=== PATIENT | female | born 1990 | race Caucasian/White ===

== ENCOUNTER 2018-03-14 09:58 | Emergency (ER) | payer MEDICAID, SELFPAY ==
[2018-03-14 10:04] VITALS: BP 130/66; PULSE 71; RESP 16; TEMP 36.4; O2SAT 99
--- NOTE | 2018-03-14 10:30 | W.ED.GENAD ---
Discharge Plan Disposition Patient Disposition: HOME Condition: Stable Discharge Details Chief Complaint: Cellulitis Clinical Impression: Pilonidal abscess Primary Care Provider: Jerel Harrison ED Provider: Luigi Patel Home Meds and New Rx's Prescriptions: New sulfamethoxazole-trimethoprim [Bactrim DS] 800-160 mg tablet 1 tab PO BID Qty: 10 RF: 0 Discharge Instructions Instructions: Pilonidal Cyst (GEN) Discharge Data Discharge Physician: Luigi Patel Medical Decision Making Pt comes in with a few days of pain in upper buttock crease. On exam has a pilonidal cyst with some evidence of infection. She gives verbal consent to have this drained and will start abx for her. No fevers or sever epain, no difficulty having bowel movements or adominal pain so doubt other anorectal abscess incised without complications, purulent material expressed and probed with delano to break up adhesions. Will d/c home and have her f/u with general surgery Differential Diagnosis cellulitis, pilonidal cyst HPI General Mode of arrival: ambulatory. Date/Time Provider Initiated Documentation: 03/14/18 10:21. Limitations to Documentation: no limitations. Information obtained by: patient. History of Present Illness 27 year old F presents to the emergency department with the chief complaint of rash, described as moderate, with intensity rated at 3. Quality is described as aching, and is localized to the back. Patient reports no radiation. Patient started experiencing this day(s) (3) No relieving factors improve symptom(s), No exacerbating factors reported . Patient did receive the following treatments prior to arrival, none Related Data Home Medications Medication Instructions Recorded Confirmed sulfamethoxazole-trimethoprim 1 tab PO BID #10 tab 03/14/18 [Bactrim DS] Previous Rx's Medication Instructions Recorded sulfamethoxazole-trimethoprim 1 tab PO BID #10 tab 03/14/18 [Bactrim DS] Allergies Allergy/AdvReac Type Severity Reaction Status Date / Time codeine Allergy Unknown Hives Unverified 06/05/15 11:33 General Stated Complaint: Cellulitis JE: 3 Review of Systems Review of Systems All systems reviewed & are unremarkable except as noted in HPI and below Constitutional Denies chills and Denies fever(s) ENT Denies change in voice Cardiovascular Denies chest pain and Denies dyspnea Respiratory Denies dyspnea Gastrointestinal Denies abdominal pain, Denies nausea and Denies vomiting Genitourinary Denies dysuria Musculoskeletal Denies joint swelling Psychiatric Denies depression Endocrine Denies cold intolerance and Denies heat intolerance PFSH Social History Smoking/Tobacco Use Status: Current every day Exam Const General: no acute distress Orientation: alert HENMT Head: normal to inspection Ears: external ears normal General nose exam: external nose normal Mouth: moist mucous membranes Eyes General: appearance normal, both eyes and all related structures Neck Neck: normal visual inspection Resp Effort & Inspection: normal respiratory effort and able to speak in complete sentences Cardio Rate: regular rate Back/Spine/Pelvis Back: other (3cm erythema with mid fluctuance at the superior midline of the buttock crease, no crepitus or drainage) Skin General skin exam: no rashes or lesions noted Neuro General: alert and oriented x3 Extrem General: normal to inspection Psych Mental Status: mental status grossly normal Course Vital Signs Temperature 36.4 C L 03/14/18 10:04 Pulse 71 03/14/18 10:04 Respiratory Rate 16 03/14/18 10:04 Blood Pressure 130/66 03/14/18 10:04 Pulse Oximetry 99 03/14/18 10:04 Temperature 36.4 C L 03/14/18 10:04 Temperature Source Temporal Artery Scan 03/14/18 10:04 Pulse 71 03/14/18 10:04 Respiratory Rate 16 03/14/18 10:04 Respiratory Effort 03/14/18 10:07 Blood Pressure 130/66 03/14/18 10:04 Pulse Oximetry 99 03/14/18 10:04 Oxygen Delivery Method Room Air 03/14/18 10:04 Oxygen Flow Rate 0 03/14/18 10:04 Pain Level 8 03/14/18 10:04 Procedures Abscess I/D Site: Other (pilonidal) Sedation/analgesia: None Local Anesthetic: Lidocaine 1% Amount of anesthesia used (mL): 4 Technique: Incised with #11 Blade Amount of fluid expressed (mL): 10 Irrigation: Yes Packing used?: None Complications: Other (none)
--- NOTE | 2018-03-14 10:33 | ED.GENADUL_ITS ---
Discharge Plan Disposition Patient Disposition: HOME Condition: Stable Discharge Details Chief Complaint: Cellulitis Clinical Impression: Pilonidal abscess Primary Care Provider: Jerel Harrison ED Provider: Luigi Patel Home Meds and New Rx's Prescriptions: New sulfamethoxazole-trimethoprim [Bactrim DS] 800-160 mg tablet 1 tab PO BID Qty: 10 RF: 0 Discharge Instructions Instructions: Pilonidal Cyst (GEN) Discharge Data Discharge Physician: Luigi Patel Medical Decision Making Pt comes in with a few days of pain in upper buttock crease. On exam has a pilonidal cyst with some evidence of infection. She gives verbal consent to have this drained and will start abx for her. No fevers or sever epain, no difficulty having bowel movements or adominal pain so doubt other anorectal abscess incised without complications, purulent material expressed and probed with delano to break up adhesions. Will d/c home and have her f/u with general surgery Differential Diagnosis cellulitis, pilonidal cyst HPI General Mode of arrival: ambulatory . Date/Time Provider Initiated Documentation: 03/14/18 10:21 . Limitations to Documentation: no limitations . Information obtained by: patient . History of Present Illness 27 year old F presents to the emergency department with the chief complaint of rash, described as moderate, with intensity rated at 3. Quality is described as aching, and is localized to the back. Patient reports no radiation. Patient started experiencing this day(s) (3) No relieving factors improve symptom(s), No exacerbating factors reported . Patient did receive the following treatments prior to arrival, none Related Data Home Medications Medication Instructions Recorded Confirmed sulfamethoxazole-trimethoprim 1 tab PO BID #10 tab 03/14/18 [Bactrim DS] Previous Rx's Medication Instructions Recorded sulfamethoxazole-trimethoprim 1 tab PO BID #10 tab 03/14/18 [Bactrim DS] Allergies Allergy/AdvReac Type Severity Reaction Status Date / Time codeine Allergy Unknown Hives Unverified 06/05/15 11:33 General Stated Complaint: Cellulitis JE: 3 Review of Systems Review of Systems All systems reviewed & are unremarkable except as noted in HPI and below Constitutional Denies chills and Denies fever(s) ENT Denies change in voice Cardiovascular Denies chest pain and Denies dyspnea Respiratory Denies dyspnea Gastrointestinal Denies abdominal pain, Denies nausea and Denies vomiting Genitourinary Denies dysuria Musculoskeletal Denies joint swelling Psychiatric Denies depression Endocrine Denies cold intolerance and Denies heat intolerance PFSH Social History Smoking/Tobacco Use Status: Current every day Exam Const General: no acute distress Orientation: alert HENMT Head: normal to inspection Ears: external ears normal General nose exam: external nose normal Mouth: moist mucous membranes Eyes General: appearance normal, both eyes and all related structures Neck Neck: normal visual inspection Resp Effort & Inspection: normal respiratory effort and able to speak in complete sentences Cardio Rate: regular rate Back/Spine/Pelvis Back: other (3cm erythema with mid fluctuance at the superior midline of the buttock crease, no crepitus or drainage) Skin General skin exam: no rashes or lesions noted Neuro General: alert and oriented x3 Extrem General: normal to inspection Psych Mental Status: mental status grossly normal Course Vital Signs Temperature 36.4 C L 03/14/18 10:04 Pulse 71 03/14/18 10:04 Respiratory Rate 16 03/14/18 10:04 Blood Pressure 130/66 03/14/18 10:04 Pulse Oximetry 99 03/14/18 10:04 Temperature 36.4 C L 03/14/18 10:04 Temperature Source Temporal Artery Scan 03/14/18 10:04 Pulse 71 03/14/18 10:04 Respiratory Rate 16 03/14/18 10:04 Respiratory Effort 03/14/18 10:07 Blood Pressure 130/66 03/14/18 10:04 Pulse Oximetry 99 03/14/18 10:04 Oxygen Delivery Method Room Air 03/14/18 10:04 Oxygen Flow Rate 0 03/14/18 10:04 Pain Level 8 03/14/18 10:04 Procedures Abscess I/D Site: Other (pilonidal) Sedation/analgesia: None Local Anesthetic: Lidocaine 1% Amount of anesthesia used (mL): 4 Technique: Incised with #11 Blade Amount of fluid expressed (mL): 10 Irrigation: Yes Packing used?: None Complications: Other (none)
--- NOTE | 2018-03-15 10:46 | PDOC.ERCMPRO ---
Care Management Progress Note 03/15-Dr. Patel requested assistance with a surgical f/u this week for pylonidal abscess. Referral faxed to [facility] this am.
--- NOTE | 2018-03-15 10:47 | CMPROGNOTE_ITS ---
Care Management Progress Note 03/15-Dr. Patel requested assistance with a surgical f/u this week for pylonidal abscess. Referral faxed to [facility] this am.
== END 2018-03-14 10:57 | disposition home or self-care (01) ==
LOC: ER 11:02
PROVIDERS: Emergency Provider Emergency Medicine; PCP Family Medicine
DX: L05.02 Pilonidal sinus with abscess (principal)
CPT/HCPCS: 10060

== ENCOUNTER 2018-10-03 14:14 | Emergency (ER) | payer MEDICAID, SELFPAY ==
--- NOTE | 2018-10-03 14:21 | NUR.NOTE ---
rolled her right ankle last night pr rotated ankle both medially and laterally
--- NOTE | 2018-10-03 14:22 | DI.RAD_ITS ---
SYMPTOM/DIAGNOSIS: ROLLED ANKLE, PAIN RIGHT ANKLE: Three views were obtained. There is marked soft tissue swelling adjacent to the lateral malleolus. No evidence of fracture. The ankle mortise appears well maintained.
[2018-10-03 14:23] VITALS: BP 126/79; PULSE 110; RESP 18; TEMP 36.7; O2SAT 95
--- NOTE | 2018-10-03 14:25 | W.ED.GENAD ---
Discharge Plan Disposition Patient Disposition: HOME Condition: Good Discharge Details Chief Complaint: Orthopedic Clinical Impression: Right ankle sprain, Conjunctivitis Primary Care Provider: Jerel Harrison ED Provider: Troy Gracia Home Meds and New Rx's Prescriptions: No Action gabapentin 800 mg Tablet 800 mg PO DAILY RF: 0 methadone 5 mg Tablet 5 mg PO Q6H RF: 0 Discharge Instructions Instructions: Ankle Sprain (ED), Conjunctivitis (ED) Additional Instructions: Please take 1000 milligrams of Tylenol every 6 hours and maximum of 800 mg of ibuprofen every 6 hours as needed for the pain. Please take the antibiotic ointment as directed. Please use the walking boot as directed in addition to crutches. Please follow-up closely with your primary care provider. If your symptoms do not improve over 1 to 2 weeks with the Tylenol, Motrin, and the splint you may require further evaluation by electronic publications specialist. If you notice any worsening of your symptoms, or any new symptoms such as vomiting, diarrhea, fever, chills, shortness of breath, chest pain, numbness, weakness, or fainting , please return immediately to the emergency department for reevaluation. Please follow up with your primary care provider as soon as possible for reassessment and reevaluation. As always, it was a pleasure participating in your medical care today. Referrals: Jerel Harrison [Primary Care Provider] - Medical Decision Making This is a pleasant 28-year-old female who presents today for evaluation of right ankle pain after both inverting and everting her foot yesterday while having a mechanical slip on the stairs. She has no other pain or complaint in any other portion of her body. No significant deformity or joint laxity. Mild swelling over the medial lateral malleoli. We will get an x-ray to rule out acute fracture however I suspect sprain to be the cause of her symptomatology. She also complains of mild crusting and goopy discharge from her left eye, she is not a contact lens wear. No evidence of clinical conjunctivitis on exam. Because of her historical complaints that we will give erythromycin ointment here for administration. 3:32 PM X-ray results have returned and per radiologist there is no evidence of acute fracture. Patient has been given crutches, placed in a walking boot, and given erythromycin ointment for her mild historical conjunctivitis. Recommend Tylenol and Motrin for home use. Discussed red flags for which to return. I have extensively reviewed the treatment plan and discharge instructions with the patient. I have addressed all patient concerns at this time. The patient was made aware of what symptoms to monitor for that would warrant a return to the emergency department. Discussed the plan with the patient, they demonstrate verbal understanding and agreement with our assessment and plan at this time. CLINICAL HISTORY: 28 years old, female; Pain; Ankle; Right TECHNIQUE: Imaging protocol: XR Right ankle. Views: 3 or more views. COMPARISON: No relevant prior studies available. FINDINGS: Anatomic alignment. No acute fracture. Marked lateral soft tissue swelling. IMPRESSION: Lateral soft tissue swelling without evidence of acute bony injury. Dictated and Authenticated by: Sean Vergara MD. Ordering:BASILIO Simmons MD HPI General Date/Time Provider Initiated Documentation: 10/03/18 14:16. HPI Narrative: This is a 28-year-old female with a past medical history of hepatitis C who presents today for evaluation of right ankle pain. The patient states that last night she was walking down a flight of stairs when she had a mechanical slip which caused both an inversion and subsequent eversion of her right ankle. She has had notable pain since then. She has taken aspirin last night and this only slightly improved her symptoms. She denies hearing any pop. She denies any other complaints. She denies any numbness or tingling in the foot. Pain is made worse when she applies weight to the right foot. She denies any pain in her left foot. She denies any knee or benedict pain. She also admits to mild crusting that she is noticed in her left eye. She does not wear any contact lenses. She denies any trauma. Crusting is only present in the morning with associated droopiness the medial aspect of the eye. She denies any itchiness or irritation otherwise. Patient denies any other complaints or modifying factors. Related Data Home Medications Medication Instructions Recorded Confirmed gabapentin 800 mg PO DAILY 10/03/18 10/03/18 methadone 5 mg PO Q6H 10/03/18 10/03/18 Allergies Allergy/AdvReac Type Severity Reaction Status Date / Time codeine Allergy Unknown Hives Unverified 10/03/18 14:25 General Stated Complaint: Orthopedic JE: 4 Review of Systems Review of Systems All systems reviewed & are unremarkable except as noted in HPI and below PFSH Social History Smoking/Tobacco Use Status: Current every day Tobacco Type: cigarettes Alcohol Intake: current Alcohol Intake frequency: 3 or more drinks per day Alcohol type: beer Drug use: Daily Substance use type: marijuana Do you feel safe at home: Yes Do you feel safe in your relationship?: Yes Exam Narrative Exam Narrative: 1.Const: Well-nourished, Well-developed, appearing stated age 2.Eyes: PERRL, no conjunctival injection, and symmetrical lids. No evidence of conjunctival injection, discharge, pre-or post septal cellulitis or other abnormality. 3.ENT: Atraumatic external nose and ears. Moist MM. Neck: Symmetric, trachea midline, No thyromegaly. 4.CVS: +S1/S2, No murmurs or gallops. Peripheral pulses 2+ and equal in all extremities. Brisk capillary refill in all extremities. 5.RESP: Unlabored respiratory effort. Clear to auscultation bilaterally. No wheezes rales or rhonchi 6.GI: Soft, Nontender/Nondistended, No hepatosplenomegaly. No guarding or rebound. 7.MSK: Normocephalic, Extremities w/o deformity. No cyanosis or clubbing. Patient has +5 out of 5 strength in the lower extremities in dorsiflexion and plantarflexion, knee flexion and extension, hip flexion and extension. There is +2 over 2 dorsalis pedis pulses bilaterally. There is normal sensation to the skin with light touch at the foot knee and hip. Mild swelling noted over the medial and lateral malleoli, notable reproducible tenderness over the medial and lateral malleoli. No significant joint laxity for eversion, inversion, anterior posterior drawer, or other movements. No tenderness over the calcaneus, midfoot, or tibia or fibula at the midshaft or proximal regions. No pain with movement of the knee. 8.Skin: Warm, Dry. No rashes or lesions. 9.Neuro: clerk travel reservations II-XII grossly intact. Sensation grossly intact, no focal neurologic deficits. 10.Psych: (AAO) x3. Appropriate mood and affect Course Vital Signs Temperature 36.7 C 10/03/18 14:23 Pulse 110 H 10/03/18 14:23 Respiratory Rate 18 10/03/18 14:23 Blood Pressure 126/79 10/03/18 14:23 Pulse Oximetry 95 10/03/18 14:23 Temperature 36.7 C 10/03/18 14:23 Temperature Source Skin 10/03/18 14:23 Pulse 110 H 10/03/18 14:23 Respiratory Rate 18 10/03/18 14:23 Blood Pressure 126/79 10/03/18 14:23 Blood Pressure Position Sitting 10/03/18 14:23 Pulse Oximetry 95 10/03/18 14:23 Oxygen Delivery Method Room Air 10/03/18 14:23 Oxygen Flow Rate 0 10/03/18 14:23 Pain Level 8 10/03/18 14:23
--- NOTE | 2018-10-03 15:26 | DI.VRAD_ITS ---
EXAM: XR Right Ankle Complete, 3 or more Views EXAM DATE/TIME: 10/03/2018 2:24 PM CLINICAL HISTORY: 28 years old, female; Pain; Ankle; Right TECHNIQUE: Imaging protocol: XR Right ankle. Views: 3 or more views. COMPARISON: No relevant prior studies available. FINDINGS: Anatomic alignment. No acute fracture. Marked lateral soft tissue swelling. IMPRESSION: Lateral soft tissue swelling without evidence of acute bony injury. Dictated and Authenticated by: Sean Vergara MD. Ordering:BASILIO Simmons MD
[2018-10-03 15:42] VITALS: BP 126/79; PULSE 90; RESP 18; TEMP 36.7; O2SAT 95
== END 2018-10-03 15:43 | disposition home or self-care (01) ==
PROVIDERS: Emergency Provider Student in an Organized Health Care Education/Training Program; PCP Family Medicine
DX: S93.401A Sprain of unspecified ligament of right ankle, initial encounter (principal); X50.9XXA Other and unspecified overexertion or strenuous movements or postures, initial encounter; W10.8XXA Fall (on) (from) other stairs and steps, initial encounter; H10.32 Unspecified acute conjunctivitis, left eye
CPT/HCPCS: 99283; 73610; E0114; L4361

== ENCOUNTER 2018-10-12 18:53 | Emergency (ER) | payer MEDICAID, SELFPAY ==
[2018-10-12 19:08] VITALS: BP 135/80; PULSE 95; RESP 16; TEMP 36.7; O2SAT 97
[2018-10-12] MEDS: Ondansetron O.D.T. 4 MG TABEF PO (19:28)
[2018-10-12 20:16] LABS: Bilirubin Negative (Negative); Blood Negative (Negative); Clarity Clear; Glucose Negative (Negative); Ketones Negative (Negative); Leukocyte Esterase Trace (Negative); Nitrite Negative (Negative)
[2018-10-12 20:22] LABS: HCT 42.5 % (36.0-46.0); Mean Corp. HGB Concentration 35.3 g/dL (32.0-36.0); Mean Corpuscular Volume 93.4 fL (80-95); Mean Platelet Volume 10.2 fL (8.0-11.0); Platelet Count 194 x1000/uL (130-400); RBC 4.55 m/cumm (4.00-5.20); RBC Distribution Width 14.9 % (11.7-14.6); White Blood Cell Count 9.31 k/cumm (4.4-10.8)
[2018-10-12 20:27] LABS: ALT 29 U/L (12-78); AST 36 U/L (15-37); Albumin 3.4 g/dL (3.4-5.0); Alkaline Phosphatase 103 U/L (46-116); Anion Gap 11.1 mmol/L (3-11); BUN 7 mg/dL (7-18); Bilirubin, Total 0.3 mg/dL (0.2-1.0); CO2 26.9 mmol/L (21.0-32.0); CREATININE 0.81 mg/dL (0.55-1.02); Calcium 8.5 mg/dL (8.5-10.1); Chloride 96 mmol/L (98-107); ETHANOL BLOOD 40.6 mg/dL (<3); Glucose 93 mg/dL (70-100); Lipase 87 U/L (73-393); Magnesium 2.2 mg/dL (1.8-2.4); Potassium 3.6 mmol/L (3.5-5.1); Sodium 134 mmol/L (136-145); Total Protein 7.8 g/dL (6.4-8.2)
[2018-10-12 20:35] LABS: TSH (W/Ref FT4) 0.74 uIU/mL (0.358-3.74)
[2018-10-12 20:39] LABS: Troponin I < 0.02 ng/mL (0.00-0.06)
[2018-10-12 20:50] LABS: Absolute Eosinophil Count 0.09 k/cumm (0.0-0.7); Absolute Lymphocyte Count 5.12 k/cumm (1.2-3.4); Absolute Monocyte Count 0.28 k/cumm (0.11-0.7); Absolute Neutrophil Count 3.82 k/cumm (1.2-6.7); Atypical Lymphocytes % 38
[2018-10-12 20:51] LABS: Diff Comment Diff Reviewed
[2018-10-12 20:52] LABS: RBC Morphology Normal
[2018-10-12 21:00] LABS: Bacteria Negative HPF (Negative); C & S Indicated? Yes; Casts Negative LPF (Negative); Crystals Negative HPF (Negative); Epithelial Cells Few HPF (Negative); Mucus Negative (Negative); Other Cells Negative (Negative); RBC Negative (0-2)
[2018-10-12] MEDS: Pantoprazole 40 MG TABCR PO (21:57)
[2018-10-12] MEDS: Normal Saline 1,000 ML 1000 ML IV (21:57)
[2018-10-12 22:38] VITALS: BP 124/75; PULSE 80; RESP 18; TEMP 36.7; O2SAT 96
[2018-10-12] MEDS: Promethazine 25 MG TAB 50 MG PO (22:39)
--- NOTE | 2018-10-14 11:23 | ED.GENADUL_ITS ---
Discharge Plan Disposition Patient Disposition: HOME Condition: Improving Discharge Details Chief Complaint: Nausea/Vomit/Diar Clinical Impression: Nausea & vomiting, Gastritis, Alcohol dependence Primary Care Provider: Jerel Harrison ED Provider: Puja Rosenthal Home Meds and New Rx's Prescriptions: New promethazine 25 mg tablet 25 mg PO Q6H PRN (Reason: nausea and vomiting) Qty: 10 RF: 0 pantoprazole [Protonix] 40 mg tablet,delayed release (DR/EC) 40 mg PO DAILY Qty: 14 RF: 0 Continued gabapentin 800 mg Tablet 400 mg PO TID RF: 0 buprenorphine-naloxone [Suboxone] 12-3 mg Film 12 film Sublingual DAILY RF: 0 Discontinued omeprazole 20 mg Capsule,Delayed Release(Dr/Ec) 20 mg PO DAILY RF: 0 Discharge Instructions Instructions: Promethazine (By mouth), Gastritis (ED), Acute Nausea and Vomiting (ED) Additional Instructions: Your labs are reassuring today. You have been prescribed phenergan to help with nausea and vomiting. Protonix will be in place of Omeprazole. You may use Mylanta to help with discomfort as well, this is available over the counter. Please encourage hydration. Contact your primary care tomorrow to schedule appointment for the end of the week. If you develop fevers, increased pain, inability to stay hydrated or other new/worsening symptoms please seek care urgently once again. Referrals: Jerel Harrison [Primary Care Provider] - Discharge Data Discharge Date/Time-TO BE ENTERED AT DEPARTURE: 10/12/18 22:40 Medical Decision Making Patient is a 28-year-old female presenting today for feeling unwell, nausea/vomiting, diarrhea for the past month. She has epigastric discomfort. Has been fatigued. On exam, she appears uncomfortable primarily secondary to her nausea. Patient has been vomiting. Patient tachycardic at 95. History of hep C, anxiety, depression. She has been cutting back on alcohol, she may be feeling unwell associated with this. States that she has had alcohol today, low suspicion for acute withdrawal. No history of seizures associated with withdrawal. With her length of symptoms, I am concerned for electrolyte abnormality, dehydration. Patient endorsing epigastric discomfort. Will also obtain lipase. With chronic fatigue, will obtain TSH. At this point, no peritoneal findings. Symptoms have been ongoing for several weeks, do not see need for imaging at this time. Patient given IV hydration, Zofran. Zofran unsuccessful. She responded very well to phenergan. Labs significant for leukocyte esterase in the urine. Patient denies any dysuria, increased frequency or urgency. She does not note any vaginal discharge. This point, her history is not consistent with urinary tract infection. Advised that we will contact her with any positive results with the culture but will hold off any antibiotics at this time. No leukocytosis. No significant electrolyte abnormalities. Thyroid is within normal limits. Discussed these findings with the patient. She is feeling much improved after hydration and Phenergan. She reports she is ready for discharge. This point, unclear as to what is driving her persistent nausea and vomiting. This may be linked to her alcohol withdrawal. I did advise that she may try a rehab facility. She has an upcoming appointment with a manager [facility]. She was offered a consultation with [facility] while in the emergency department which she declined. Patient will be prescribed Phenergan to help with symptom medic management. I encouraged hydration. We discussed new/worsening symptoms and red flags that should prompt her to seek care urgently once again. All of her questions and concerns were addressed and she is in agreement this plan. She will follow-up with her primary care this week. After patient left, considered Lyme or other tick born illness. Patient reports she lives in [facility], high exposure to ticks. Contacted her PCP to have this test completed at their discretion. HPI General Mode of arrival: ambulatory . Date/Time Provider Initiated Documentation: 10/12/18 19:18 . Limitations to Documentation: no limitations . Information obtained by: patient, family (friend ) and RN notes reviewed . HPI Narrative: Patient is a 28-year-old female, accompanied by her friend, with multitude of complaints. Her primary concern at this time is nausea and vomiting. She reports she has had this for the past few months. Patient was a heavy drinker, drinking at least 12 beers a day. She reports that she has been cutting down over the past few weeks, is currently only drinking 4 drinks per day. She is trying to cut back at home. She has been a drug abuser but reports she has not used several months, is currently on Suboxone. She reports that she has addressed this with her primary care. As the patient is having epigastric pain associated nausea they had begun her on omeprazole. States that there is minimal relief of her symptoms. Denies any fevers but has been feeling chills, endorses some shaking. Endorses epigastric discomfort but no other abdominal pain. No chest pain or shortness of breath. Has not noted any rashes. Endorses headache, fatigue Related Data Home Medications Medication Instructions Recorded Confirmed gabapentin 400 mg PO TID 10/03/18 10/12/18 buprenorphine-naloxone [Suboxone] 12 film SUBLINGUAL DAILY 10/12/18 10/12/18 pantoprazole [Protonix] 40 mg PO DAILY #14 tab 10/12/18 promethazine 25 mg PO Q6H PRN #10 tab 10/12/18 Previous Rx's Medication Instructions Recorded pantoprazole [Protonix] 40 mg PO DAILY #14 tab 10/12/18 promethazine 25 mg PO Q6H PRN #10 tab 10/12/18 Allergies Allergy/AdvReac Type Severity Reaction Status Date / Time codeine Allergy Unknown Hives Unverified 10/12/18 19:11 General Stated Complaint: Nausea/Vomit/Diar JE: 4 Review of Systems Constitutional Reports as per HPI, Reports chills, Reports fatigue, Denies fever(s), Reports headache(s) (none currently, intermittent SUMMERS), Reports lethargy and Reports poor appetite Eyes Denies change in vision ENT Denies dizziness and Reports headache(s) (none currently, intermittent SUMMERS) Cardiovascular Reports as per HPI, Denies chest pain, Denies chest pain at rest, Denies chest pain with activity, Denies diaphoresis, Denies claudication, Denies leg edema, Denies lightheadedness, Denies radiating jaw, neck or arm pain, Denies dyspnea and Denies dyspnea on exertion Respiratory Reports as per HPI, Denies chest congestion, Denies cough, Denies pain on inspiration, Denies pain with cough, Denies dyspnea, Denies dyspnea on exertion and Denies wheezing Gastrointestinal Reports as per HPI, Reports abdominal pain (epigastric), Reports change in stool character, Reports diarrhea, Reports nausea and Reports vomiting Genitourinary Denies abnormal vaginal bleeding, Denies urinary frequency, Denies genital lesions, Denies urinary urgency and Denies vaginal discharge Musculoskeletal Reports as per HPI and Denies back pain Integumentary/Breasts Reports as per HPI and Denies rash Neurologic Reports as per HPI, Denies dizziness and Reports headache(s) (none currently, intermittent SUMMERS) Endocrine Reports fatigue Allergic/Immunologic Denies wheezing PFSH Social History Smoking/Tobacco Use Status: Current every day Tobacco Type: cigarettes Smoking cigarettes per day: 5 Alcohol Intake: current Alcohol Intake frequency: 3 or more drinks per day Alcohol type: beer Drug use: Daily Substance use type: marijuana Do you feel safe at home: Yes Do you feel safe in your relationship?: Yes Exam Const General: cooperative, uncomfortable (patient is nauseated, appears uncomfortable), no acute distress and well developed Nutritional Appearance: well nourished and overweight Orientation: alert, awake and oriented x3 HENMT Head: normal to inspection Ears: hearing grossly normal bilaterally Mouth: mucous membranes dry (patietn appears dry) Chest Chest: normal inspection of the chest, normal palpation of entire chest wall and no crepitus Resp Effort & Inspection: normal respiratory effort, able to speak in complete sentences and no respiratory distress Auscultation: clear to auscultation bilaterally, no rales, no rhonchi and no wheezes Cardio Rate: regular rate Rhythm: regular rhythm Heart Sounds: S1 normal and S2 normal GI Inspection: normal to inspection, no edema and non-distended Palpation: soft, no hepatosplenomegaly, not firm, no guarding, not rigid and tender in the epigastrum; obturator sign negative, psoas sign negative and with no rebound tenderness Auscultation: normal bowel sounds Back/Spine/Pelvis Back: no CVA tenderness Thoracic/Lumbar Spine: thoracic and lumbar spine normal to inspection Skin General skin exam: no rashes or lesions noted Trauma: no lacerations or abrasions Neuro General: alert, awake and oriented x3 Cognition: normal cognition Speech: speech normal Gait: normal gait Extrem General: normal to inspection, normal capillary refill, no pedal edema, no calf tenderness and normal gait Psych Appearance: grossly normal and well kempt Mental Status: mental status grossly normal Speech and Movement: speech and movement normal Course Vital Signs Temperature 36.7 C 10/12/18 19:08 Pulse 95 H 10/12/18 19:08 Respiratory Rate 16 10/12/18 19:08 Blood Pressure 135/80 10/12/18 19:08 Pulse Oximetry 97 10/12/18 19:08 Temperature 36.7 C 10/12/18 19:08 Temperature Source Temporal Artery Scan 10/12/18 19:08 Pulse 95 H 10/12/18 19:08 Respiratory Rate 16 10/12/18 19:08 Respiratory Effort 10/12/18 19:08 Blood Pressure 135/80 10/12/18 19:08 Pulse Oximetry 97 10/12/18 19:08 Oxygen Delivery Method Room Air 10/12/18 19:08 Oxygen Flow Rate 0 10/12/18 19:08
== END 2018-10-12 22:40 | disposition home or self-care (01) ==
PROVIDERS: Emergency Provider Physician Assistant; PCP Family Medicine
DX: K29.00 Acute gastritis without bleeding (principal); F10.20 Alcohol dependence, uncomplicated
CPT/HCPCS: 36415; 80053; 81025; 83690; 96365; 99284; 80320; 81003; 81015; 83735; 84443; 84484; 85025; 87086

== ENCOUNTER 2018-10-30 16:06 | Emergency (ER) | payer MEDICAID, SELFPAY ==
[2018-10-30 16:20] VITALS: BP 113/75; PULSE 115; RESP 16; TEMP 37.2; O2SAT 97
--- NOTE | 2018-10-30 16:49 | DI.COMBO_ITS ---
SYMPTOM/DIAGNOSIS: SEIZURE ACTIVITY, POST COITAL PER SPOUSE, RT AXILLA PAIN, SWELLING,NAUSEA, VOMITING PA AND LATERAL CHEST: The heart is normal in size. The lungs are clear. The mediastinal structures and pleura appear intact. CONCLUSION: Normal chest. NONCONTRAST HEAD CT: A noncontrast cranial CT was performed. Note is made of mild mucoperiosteal thickening of right frontal and left sphenoid sinus consistent with mild chronic sinus disease. Mastoid air cells are clear. The orbital and temporal bone structures appear intact. There is no evidence of acute intracranial hemorrhage, mass effect or midline shift. CONCLUSION: No evidence of acute process. Chronic right frontal and left sphenoid sinusitis.
[2018-10-30 17:13] LABS: Lactate-non-spesis 2.9 mmol/l (0.6-1.4)
[2018-10-30 17:18] LABS: Abs Immature Grans 0.04 k/cumm (0.0-0.09); Absolute Eosinophil Count 0.03 k/cumm (0.0-0.7); Absolute Lymphocyte Count 2.62 k/cumm (1.2-3.4); Basophils % 0.1; Eosinophils % 0.2; HCT 42.2 % (36.0-46.0); HGB 14.2 g/dL (12.0-15.5); Immature Grans % 0.3; Lymphocytes % 17.9; Mean Corp. HGB Concentration 33.6 g/dL (32.0-36.0); Mean Corpuscular Hemoglobin 32.3 pg (27.0-33.0); Mean Corpuscular Volume 96.1 fL (80-95); Mean Platelet Volume 9.3 fL (8.0-11.0); Monocytes % 11.1; Neutrophils % 70.4; Platelet Count 274 x1000/uL (130-400); RBC 4.39 m/cumm (4.00-5.20); RBC Distribution Width 14.9 % (11.7-14.6); White Blood Cell Count 14.65 k/cumm (4.4-10.8)
[2018-10-30 17:25] LABS: Bilirubin Negative (Negative); Blood Negative (Negative); Clarity Clear; Glucose Negative (Negative); Ketones Trace mg/dL (Negative); Leukocyte Esterase Negative (Negative); Nitrite Negative (Negative); pH 8.5 (5-8)
[2018-10-30 17:28] LABS: Absolute Basophil Count 0.01 k/cumm (0.0-0.2); Absolute Monocyte Count 1.63 k/cumm (0.11-0.7); Absolute Neutrophil Count 10.31 k/cumm (1.2-6.7)
[2018-10-30 17:41] LABS: Bacteria Negative HPF (Negative); Casts Negative LPF (Negative); Crystals Few Amorphous HPF (Negative); Epithelial Cells Many HPF (Negative); Mucus Moderate (Negative); RBC Negative (0-2)
[2018-10-30 17:42] LABS: C & S Indicated? No/Sq. Contamination
[2018-10-30 17:50] LABS: Diff Comment Diff Reviewed; RBC Morphology Normal
[2018-10-30 17:56] LABS: *AMPHETAMINES SCREEN URINE POSITIVE (Negative); *BARBITURATES SCREEN URINE Negative (Negative); *BENZODIAZEPINES SCREEN URINE Negative (Negative); Cannabinoids THC POSITIVE (Negative); Cocaine Screen,Urine Negative (Negative); METHADONE URINE SCREEN Negative (Negative); OPIATES URINE SCREEN Negative (Negative)
[2018-10-30 17:57] LABS: Tricyclic Antidepressants Negative (Negative)
--- NOTE | 2018-10-30 17:58 | W.ED.GENAD ---
Discharge Plan Disposition Patient Disposition: HOME Discharge Details Chief Complaint: Cellulitis Clinical Impression: Cellulitis, Seizure Primary Care Provider: Jerel Harrison ED Provider: Alan Villagomez Home Meds and New Rx's Prescriptions: New sulfamethoxazole-trimethoprim [Bactrim DS] 800-160 mg tablet 1 tab PO DAILY 7 Days Qty: 7 RF: 0 levetiracetam [Keppra] 500 mg tablet 500 mg PO BID Qty: 90 RF: 0 No Action gabapentin 800 mg Tablet 400 mg PO TID RF: 0 buprenorphine-naloxone [Suboxone] 12-3 mg Film 12 film Sublingual DAILY RF: 0 promethazine 25 mg tablet 25 mg PO Q6H PRN (Reason: nausea and vomiting) Qty: 10 RF: 0 pantoprazole [Protonix] 40 mg tablet,delayed release (DR/EC) 40 mg PO DAILY Qty: 14 RF: 0 Discharge Instructions Instructions: Cellulitis (ED), Recurrent Seizures in Adults (ED) Additional Instructions: You have been referred to neurology who was scheduling an appointment for you to be seen in the seizure clinic. Care management here will be reaching out to follow-up to make sure your appointment has been scheduled. It is very important that you take your medication as prescribed. Return should seizure activity continue. You should avoid driving or operating heavy machinery until evaluated by a neurologist. Medical Decision Making Patient is a nontoxic appearing 28-year-old female presenting to the emergency department with a primary chief complaint of a lesion in her right axilla. She also admits to seizure activity roughly 3 hours prior to arrival. This was confirmed by her spouse who is with her in the emergency department currently. Her work-up today reveals a slightly elevated lactate and white blood cell count of 14. She had a negative head CT. She has no headache or neck pain to suggest meningitis. The remainder of her labs are unremarkable. She reports chronic seizure activity for which she has never been seen or evaluated for. Her story today is concerning enough for a generalized tonic clonic episode. I have consulted neurology who agrees that initiating treatment at this time seems appropriate. Their recommendation would be Keppra 1000 mg load here followed by 500 mg twice daily. I discussed this with the patient was amendable to start treatment. Neurology has placed a consult note and will refer the patient to the epilepsy clinic. Her lesion on her right axilla is quite firm and indurated. No deep space fluid collection noted on [id number] ultrasound. She does have a history of MRSA therefore will cover for such. Bactrim DS prescribed. HPI General Date/Time Provider Initiated Documentation: 10/30/18 16:09. 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 She states that she had a pimple under her armpit with which she opened yesterday. She states since opening the lesion she has had pain and swelling over the area. She has had chills and sweats and has felt nauseous at times. She denies any fevers. She denies any discharge from the lesion. She states that the pain is radiating into her back and into her chest. She also notes roughly 3 hours ago while lying in bed with her significant other she had a seizure. Her significant other who is with her today states that the patient had a 2 to 3-minute episode of seizure-like activity. Her arms were extended and flexed with generalized convulsion occurring. The patient states that she has no recollection of the event. It was reported that she woke up confused for roughly 1 to 2 minutes. The patient states that she bit her the left side of her tongue. No urinary incontinence. She reports similar episodes in the past and has not been diagnosed with epilepsy or other seizure disorders. She has never seen a neurologist for her seizures. She takes no medications. She reports roughly 5 episodes per year. She denies any current drug use. No headache or neck pain. Related Data Home Medications Medication Instructions Recorded Confirmed gabapentin 400 mg PO TID 10/03/18 10/30/18 buprenorphine-naloxone [Suboxone] 12 film SUBLINGUAL DAILY 10/12/18 10/30/18 pantoprazole [Protonix] 40 mg PO DAILY #14 tab 10/12/18 10/30/18 promethazine 25 mg PO Q6H PRN #10 tab 10/12/18 10/30/18 levetiracetam [Keppra] 500 mg PO BID #90 tab 10/30/18 sulfamethoxazole-trimethoprim 1 tab PO DAILY 7 Days #7 tab 10/30/18 [Bactrim DS] Previous Rx's Medication Instructions Recorded pantoprazole [Protonix] 40 mg PO DAILY #14 tab 10/12/18 promethazine 25 mg PO Q6H PRN #10 tab 10/12/18 levetiracetam [Keppra] 500 mg PO BID #90 tab 10/30/18 sulfamethoxazole-trimethoprim 1 tab PO DAILY 7 Days #7 tab 10/30/18 [Bactrim DS] Allergies Allergy/AdvReac Type Severity Reaction Status Date / Time codeine Allergy Unknown Hives Unverified 10/30/18 16:23 General Stated Complaint: Cellulitis JE: 4 Review of Systems Constitutional Denies anorexia, Denies body ache(s), Reports chills, Denies fever(s), Denies frequent falls, Denies headache(s), Denies increased appetite, Denies lethargy, Denies malaise, Denies night sweats and Denies weakness Eyes Denies floaters and Denies irritation ENT Denies abnormal hearing, Denies dizziness, Reports facial pain, Denies headache(s), Denies lip swelling, Denies mouth lesions, Denies mouth pain and Denies neck pain Cardiovascular Denies chest pain, Denies chest pain at rest, Denies syncope, Denies rapid heart rate, Denies lightheadedness, Denies palpitations, Denies dyspnea and Denies dyspnea on exertion Respiratory Denies dyspnea and Denies dyspnea on exertion Gastrointestinal Denies abdominal pain, Denies fecal incontinence, Denies diarrhea, Denies nausea and Denies vomiting Genitourinary Denies hematuria, Denies dysuria, Denies urinary incontinence and Denies urinary urgency Musculoskeletal Denies abnormal gait, Denies deformity, Denies limited range of motion, Denies muscle cramps, Denies muscle weakness, Denies neck pain and Denies numbness Neurologic Denies abnormal hearing, Denies abnormal movements, Denies abnormal speech, Denies abnormal gait, Denies burning sensations, Denies dizziness, Denies syncope, Denies frequent falls, Denies headache(s), Denies numbness, Reports convulsions, Reports seizure-like activity and Denies weakness Psychiatric Denies depression Endocrine Denies palpitations Hematologic/Lymphatic Reports as per HPI Allergic/Immunologic Denies lip swelling [facility] Social History Smoking/Tobacco Use Status: Current every day Tobacco Type: cigarettes Alcohol Intake: current Alcohol Intake frequency: 3 or more drinks per day Alcohol type: beer Drug use: Daily Substance use type: marijuana Do you feel safe at home: Yes Do you feel safe in your relationship?: Yes Exam Const General: cooperative, healthy appearing and comfortable Nutritional Appearance: average body habitus Orientation: alert, awake and oriented x3 [facility] Head: normal to inspection, normocephalic and atraumatic Ears: hearing grossly normal bilaterally General nose exam: external nose normal Face and sinus: normal facial exam, sinuses nontender and face symmetric Mouth: oral mucosae normal, lip normal, tongue normal, oropharynx normal and moist mucous membranes Teeth and gingiva: dentition normal Throat: posterior oropharynx normal Eyes Visual Serrano: normal visual serrano by confrontation Alignment and Position: alignment normal Periorbital: periorbital findings normal Eyelids: eyelids normal Neck Neck: normal visual inspection, full ROM, no lymphadenopathy and no meningeal signs Chest Chest: normal inspection of the chest and normal palpation of entire chest wall Resp Effort & Inspection: normal respiratory effort and able to speak in complete sentences Auscultation: clear to auscultation bilaterally Cardio Jugular venous pressure: no JVD Palpation: normal PMI Rate: regular rate Rhythm: regular rhythm Heart Sounds: S1 normal and S2 normal Pulses: normal peripheral pulses GI Inspection: normal to inspection Palpation: soft and nontender Back/Spine/Pelvis Back: no CVA tenderness Cervical Spine: normal cervical lordosis Thoracic/Lumbar Spine: thoracic and lumbar spine normal to inspection Skin Lesions: lesion noted (Small 2 mm lesion with erythema and surrounding indurated tissue righ axill) Neuro General: alert, awake, oriented x3, no focal motor deficits, CN's II-XI intact bilaterally and normal sensation to monofilament Cognition: normal cognition Speech: speech normal Gait: normal gait Motor: muscle tone normal throughout Sensory Exam: no sensory deficits noted Extrem General: full ROM, normal capillary refill and no joint enlargement Psych Appearance: grossly normal Mental Status: mental status grossly normal Speech and Movement: speech and movement normal Course Vital Signs Temperature 37.2 C 10/30/18 16:20 Pulse 115 H 10/30/18 16:20 Respiratory Rate 16 10/30/18 16:20 Blood Pressure 113/75 10/30/18 16:20 Pulse Oximetry 97 10/30/18 16:20 Temperature 37.2 C 10/30/18 16:20 Temperature Source Skin 10/30/18 16:20 Pulse 115 H 10/30/18 16:20 Respiratory Rate 16 10/30/18 16:20 Respiratory Effort Non-Labored 10/30/18 16:20 Blood Pressure 113/75 10/30/18 16:20 Blood Pressure Position Sitting 10/30/18 16:20 Pulse Oximetry 97 10/30/18 16:20 Oxygen Delivery Method Room Air 10/30/18 16:20 Oxygen Flow Rate 0 10/30/18 16:20 Pain Level 6 10/30/18 16:20 Lab/Test Results Lab/Test Results: Laboratory Tests Range/Units 10/30/18 10/30/18 10/30/18 17:05 17:05 17:15 WBC (4.4-10.8) k/cumm 14.65 H RBC (4.00-5.20) m/cumm 4.39 Hgb (12.0-15.5) g/dL 14.2 Hct (36.0-46.0) % 42.2 MCV (80-95) fL 96.1 H MCH (27.0-33.0) pg 32.3 MCHC (32.0-36.0) g/dL 33.6 RDW (11.7-14.6) % 14.9 H Plt Count (130-400) x1000/uL 274 MPV (8.0-11.0) fL 9.3 Immature Gran % 0.3 Neutrophils % 70.4 Lymphocytes % 17.9 Monocytes % 11.1 Eosinophils % 0.2 Basophils % 0.1 Absolute Neutrophils (1.2-6.7) k/cumm 10.31 H Absolute Lymphocytes (1.2-3.4) k/cumm 2.62 Absolute Monocytes (0.11-0.7) k/cumm 1.63 H Absolute Eosinophils (0.0-0.7) k/cumm 0.03 Absolute Basophils (0.0-0.2) k/cumm 0.01 Differential Comment Diff reviewed RBC Morphology Normal Lactate (0.6-1.4) mmol/l 2.9 H Urine Color (Yellow) Yellow Urine Clarity Clear Urine pH (5-8) 8.5 H Ur Specific Hewitt (1.005-1.025) 1.020 Urine Protein (Negative) mg/dL 30 H Urine Ketones (Negative) mg/dL Trace H Urine Blood (Negative) Negative Urine Nitrite (Negative) Negative Urine Bilirubin (Negative) Negative Urine Urobilinogen (Up TO 0.2) EU/dL 2.0 H Ur Leukocyte Esterase (Negative) Negative Urine RBC (0-2) Negative Urine WBC (0-5) HPF 5-10 Ur Epithelial Cells (Negative) HPF Many Urine Crystals (Negative) HPF Few amorphous Urine Bacteria (Negative) HPF Negative Urine Casts (Negative) LPF Negative Urine Mucus (Negative) Moderate Ur Culture Indicated? No/sq. contamination Urine Glucose (Negative) mg/dL Negative Urine Opiates Screen (Negative) Urine Methadone Screen (Negative) Ur Barbiturates Screen (Negative) Ur Tricyclics Screen (Negative) Ur Amphetamines Screen (Negative) U Benzodiazepines Scrn (Negative) Urine Cocaine Screen (Negative) Ur THC Screen (Negative) Range/Units 10/30/18 17:15 WBC (4.4-10.8) k/cumm RBC (4.00-5.20) m/cumm Hgb (12.0-15.5) g/dL Hct (36.0-46.0) % MCV (80-95) fL MCH (27.0-33.0) pg MCHC (32.0-36.0) g/dL RDW (11.7-14.6) % Plt Count (130-400) x1000/uL MPV (8.0-11.0) fL Immature Gran % Neutrophils % Lymphocytes % Monocytes % Eosinophils % Basophils % Absolute Neutrophils (1.2-6.7) k/cumm Absolute Lymphocytes (1.2-3.4) k/cumm Absolute Monocytes (0.11-0.7) k/cumm Absolute Eosinophils (0.0-0.7) k/cumm Absolute Basophils (0.0-0.2) k/cumm Differential Comment RBC Morphology Lactate (0.6-1.4) mmol/l Urine Color (Yellow) Urine Clarity Urine pH (5-8) Ur Specific Hewitt (1.005-1.025) Urine Protein (Negative) mg/dL Urine Ketones (Negative) mg/dL Urine Blood (Negative) Urine Nitrite (Negative) Urine Bilirubin (Negative) Urine Urobilinogen (Up TO 0.2) EU/dL Ur Leukocyte Esterase (Negative) Urine RBC (0-2) Urine WBC (0-5) HPF Ur Epithelial Cells (Negative) HPF Urine Crystals (Negative) HPF Urine Bacteria (Negative) HPF Urine Casts (Negative) LPF Urine Mucus (Negative) Ur Culture Indicated? Urine Glucose (Negative) mg/dL Urine Opiates Screen (Negative) Negative Urine Methadone Screen (Negative) Negative Ur Barbiturates Screen (Negative) Negative Ur Tricyclics Screen (Negative) Negative Ur Amphetamines Screen (Negative) Positive U Benzodiazepines Scrn (Negative) Negative Urine Cocaine Screen (Negative) Negative Ur THC Screen (Negative) Positive POC- Test(urine) Negative
[2018-10-30 17:59] LABS: ALT 22 U/L (12-78); AST 24 U/L (15-37); Albumin 3.7 g/dL (3.4-5.0); Alkaline Phosphatase 89 U/L (46-116); Anion Gap 11.5 mmol/L (3-11); BUN 9 mg/dL (7-18); Bilirubin, Total 0.7 mg/dL (0.2-1.0); CO2 25.5 mmol/L (21.0-32.0); CREATININE 1.11 mg/dL (0.55-1.02); Calcium 10.2 mg/dL (8.5-10.1); Chloride 96 mmol/L (98-107); Estimated GFR 58.53 (mL/min/1.73m2); Glucose 120 mg/dL (70-100); Magnesium 1.6 mg/dL (1.8-2.4); Potassium 3.7 mmol/L (3.5-5.1); Sodium 133 mmol/L (136-145); TSH 1.04 uIU/mL (0.358-3.74); Total Protein 8.2 g/dL (6.4-8.2); Troponin I < 0.02 ng/mL (0.00-0.06)
[2018-10-30 18:01] LABS: HCG Qual (Serum) Negative
--- NOTE | 2018-10-30 18:24 | DI.VRAD_ITS ---
EXAM: CT Head Without Contrast EXAM DATE/TIME: 10/30/2018 4:53 PM CLINICAL HISTORY: 28 years old, female; Signs and symptoms; Other: 3-5 minutes seiure activity, post ictal per spouse TECHNIQUE: Imaging protocol: Axial computed tomography images of the head without contrast. Coronal and sagittal reformatted images were created and reviewed. COMPARISON: No relevant prior studies available. FINDINGS: Brain: No extra-axial fluid collections. No evidence of acute intracranial hemorrhage. No evidence of acute or subacute intracranial ischemia/infarct. No intracranial mass lesions. Midline shift: No midline shift or herniation. Ventricles: Ventricles normal. Bones/joints: The calvarium and visualized facial bones are intact. Sinuses: Mucosal thickening in the right frontal sinus and left sphenoid sinus consistent with chronic sinus inflammatory disease. No fluid levels. Mastoid air cells: Visualized mastoid air cells are clear. Orbits: Orbital contents demonstrate no evidence of acute abnormality. Soft tissues: The scalp and visualized soft tissues are unremarkable. Vasculature: The visualized major intracranial arterial segments demonstrate no gross abnormality by noncontrast CT. IMPRESSION: 1. No acute intracranial process. 2. Mild chronic sinus inflammatory disease involving the right frontal and left sphenoid sinuses. No fluid levels. Dictated and Authenticated by: Markus Santana MD. Ordering:SATYA Phillips MD
[2018-10-30] MEDS: Magnesium Oxide 400 MG TAB 800 MG PO (18:25)
--- NOTE | 2018-10-30 18:32 | DI.VRAD_ITS ---
EXAM: XR Chest, 2 Views EXAM DATE/TIME: 10/30/2018 4:53 PM CLINICAL HISTORY: 28 years old, female; Signs and symptoms; Other: Right axilla pain/swelling, ? seizure activity, nv TECHNIQUE: Imaging protocol: XR of the chest, 2 views. COMPARISON: CR CHEST 2 VIEWS PA,LAT 12/09/2015 6:17 PM FINDINGS: Lungs: Lung kim are clear. No infiltrates. Pulmonary vaculature normal. Pleural space: No pleural effusion. No pneumothorax. Heart/Mediastinum: Heart size normal. No mediastinal widening. Bones/joints: No acute osseous abnormalities are identified. Other findings: No tracheal shift. IMPRESSION: No acute thoracic process. Dictated and Authenticated by: Markus Santana MD. Ordering:SATYA Phillips MD
[2018-10-30] MEDS: Sulfameth/Trimeth DS TAB 1 TAB PO (20:32)
[2018-10-30] MEDS: levETIRAcetam 250 MG TAB 1000 MG PO (20:32)
--- NOTE | 2018-11-02 09:18 | PDOC.ERCMPRO ---
Care Management Progress Note 11/02- Alan LALA requested assistance with neurology f[place] for [place] [facility] [place] [facility] [place]. Called Deepa Barfield (Hunter is PCP) and spoke with Mery. Mery states that Adry has an appt today and that their office would f/u to make sure Adry has a f/u appt with neurology.
--- NOTE | 2018-11-02 09:21 | CMPROGNOTE_ITS ---
Care Management Progress Note 11/02- Alan LALA requested assistance with neurology f/u for seizures. [facility] [place] and per provider, [facility] [place] to reach out to patient to schedule appt. Called Deepa Barfield (Hunter is PCP) and spoke with Mery. Mery states that Adry has an appt today and that their office would f/u to make sure Adry has a f/u appt with neurology.
== END 2018-10-30 20:56 | disposition home or self-care (01) ==
PROVIDERS: Emergency Provider Physician Assistant; PCP Family Medicine
DX: L03.111 Cellulitis of right axilla (principal); R56.9 Unspecified convulsions
CPT/HCPCS: 36415; 80053; 80307; 81025; 99284; 70450; 71046; 81003; 81015; 83605; 83735; 84443; 84484; 84703; 85025

== ENCOUNTER 2018-10-31 13:10 | Emergency (ER) | payer MEDICAID, SELFPAY ==
[2018-10-31 13:23] VITALS: BP 116/77; PULSE 107; RESP 18; TEMP 36.1; O2SAT 99
--- NOTE | 2018-10-31 14:19 | ED.GENADUL_ITS ---
Discharge Plan Disposition Patient Disposition: HOME Condition: Stable Discharge Details Chief Complaint: Cellulitis Clinical Impression: Cellulitis, Hives Primary Care Provider: Jerel Harrison ED Provider: Oscar Poon Home Meds and New Rx's Prescriptions: New cephalexin [Keflex] 500 mg capsule 500 mg PO TID 6 Days Qty: 18 RF: 0 Continued gabapentin 800 mg Tablet 400 mg PO TID RF: 0 buprenorphine-naloxone [Suboxone] 12-3 mg Film 12 film Sublingual DAILY RF: 0 promethazine 25 mg tablet 25 mg PO Q6H PRN (Reason: nausea and vomiting) Qty: 10 RF: 0 pantoprazole [Protonix] 40 mg tablet,delayed release (DR/EC) 40 mg PO DAILY Qty: 14 RF: 0 sulfamethoxazole-trimethoprim [Bactrim DS] 800-160 mg tablet 1 tab PO DAILY 7 Days Qty: 7 RF: 0 levetiracetam [Keppra] 500 mg tablet 500 mg PO HS RF: 0 Discharge Instructions Instructions: Urticaria (ED), Cellulitis (ED) Additional Instructions: Please continue to use your prescribed antibiotics and take in addition the Keflex as directed. You may use [id number] Benadryl topically or pills and take as directed on packaging. Return to the emergency department for any new or significant worsening of symptoms or if no improvement after an additional 24 hours of observation otherwise follow-up with your primary care provider for reassessment. Referrals: Jerel Harrison [Primary Care Provider] - (Please call the office for arrangement of follow-up appointment preferably next week) Discharge Data Discharge Date/Time-TO BE ENTERED AT DEPARTURE: 10/31/18 14:30 Medical Decision Making Patient presenting to the emergency department for concern of worsening cellulit is underneath right axilla. Patient states that this started 3 days ago and was seen in the emergency department yesterday and put on Bactrim for this. Patient states some increased redness but also not having itching to the area. There is a small area concerning for cellulitis with induration but now the appearance of the area also looks like a large hive. Patient denies any topical medications that she placed on there causing allergies. Patient does state some radiating of pain down into the lower ribs and into the shoulder/neck. Physical exam shows normal exam of the neck, shoulder, and ribs but there is a significantly erythematous indurated area beneath the right axilla with no area of fluctuance which is consistent with yesterday's exam but there is a significant border that appears like a hive. Given the patient states that this is itching I feel this makes it a complicated diagnosis given concern for cellulitis with patient's history of shaving and having a pimple that she popped with worsening symptoms but then the itching and raised area consistent with hives. Plan to add Keflex to broaden coverage given patient stating slightly worsening symptoms after 3 doses of Bactrim but I would not call this antibiotic failure, and also encouraged Benadryl usage. After discussion of diagnosis and plan of care patient has no further needs, questions, or concerns and states clear understanding to return to the emergency department for any worsening symptoms. Return precautions were discussed HPI General Mode of arrival: ambulatory . Date/Time Provider Initiated Documentation: 10/31/18 13:33 . Limitations to Documentation: no limitations . Information obtained by: patient, RN notes reviewed and old records reviewed . History of Present Illness 28 year old F presents to the emergency department with the chief complaint of Right axilla cellulitis, Quality is described as other (Itching, pain), and is localized to the right and upper extremity. Patient started experiencing this day(s) (3) and it has been constant. Patient notes denies fever/chills. Patient did receive the following treatments prior to arrival, other (Bactrim) Related Data Home Medications Medication Instructions Recorded Confirmed gabapentin 400 mg PO TID 10/03/18 10/31/18 buprenorphine-naloxone [Suboxone] 12 film SUBLINGUAL DAILY 10/12/18 10/31/18 pantoprazole [Protonix] 40 mg PO DAILY #14 tab 10/12/18 10/31/18 promethazine 25 mg PO Q6H PRN #10 tab 10/12/18 10/31/18 sulfamethoxazole-trimethoprim 1 tab PO DAILY 7 Days #7 tab 10/30/18 10/31/18 [Bactrim DS] cephalexin [Keflex] 500 mg PO TID 6 Days #18 cap 10/31/18 levetiracetam [Keppra] 500 mg PO HS 10/31/18 Previous Rx's Medication Instructions Recorded pantoprazole [Protonix] 40 mg PO DAILY #14 tab 10/12/18 promethazine 25 mg PO Q6H PRN #10 tab 10/12/18 sulfamethoxazole-trimethoprim 1 tab PO DAILY 7 Days #7 tab 10/30/18 [Bactrim DS] cephalexin [Keflex] 500 mg PO TID 6 Days #18 cap 10/31/18 Allergies Allergy/AdvReac Type Severity Reaction Status Date / Time codeine Allergy Unknown Hives Unverified 10/31/18 13:29 General Stated Complaint: Cellulitis JE: 4 Review of Systems Constitutional Denies body ache(s), Denies chills and Denies fever(s) Cardiovascular Denies chest pain and Denies dyspnea Respiratory Denies dyspnea Gastrointestinal Denies abdominal pain, Denies nausea and Denies vomiting Integumentary/Breasts Reports as per HPI, Reports pruritus, Reports erythema, Reports skin pain and Reports skin swelling PFS Social History Smoking/Tobacco Use Status: Current every day Tobacco Type: cigarettes Alcohol Intake: current Alcohol Intake frequency: 3 or more drinks per day Alcohol type: beer Drug use: Daily Substance use type: marijuana Do you feel safe at home: Yes Do you feel safe in your relationship?: Yes Exam Const General: cooperative, no acute distress and not ill appearing Orientation: alert, awake and oriented x3 Resp Effort & Inspection: normal respiratory effort, able to speak in complete sentences and no respiratory distress Skin General skin exam: erythema (Underneath right axilla with raised border) and no fluctuance Course Vital Signs Temperature 36.1 C L 10/31/18 13:23 Pulse 107 H 10/31/18 13:23 Respiratory Rate 18 10/31/18 13:23 Blood Pressure 116/77 10/31/18 13:23 Pulse Oximetry 99 10/31/18 13:23 Temperature 36.1 C L 10/31/18 13:23 Temperature Source Temporal Artery Scan 10/31/18 13:23 Pulse 107 H 10/31/18 13:23 Respiratory Rate 18 10/31/18 13:23 Respiratory Effort 10/31/18 13:31 Blood Pressure 116/77 10/31/18 13:23 Blood Pressure Position Sitting 10/31/18 13:23 Pulse Oximetry 99 10/31/18 13:23 Oxygen Delivery Method Room Air 10/31/18 13:23 Oxygen Flow Rate 0 10/31/18 13:23 Pain Level 5 10/31/18 13:23
[2018-10-31] MEDS: Cephalexin 500 MG CAP PO (14:33)
[2018-10-31] MEDS: diphenhydrAMINE 25 MG CAP PO (14:33)
[2018-10-31 14:34] VITALS: BP 116/77; PULSE 89; RESP 18; TEMP 36.8; O2SAT 99
== END 2018-10-31 14:30 | disposition home or self-care (01) ==
PROVIDERS: Emergency Provider Nurse Practitioner Family; PCP Family Medicine
DX: L03.111 Cellulitis of right axilla (principal); L50.9 Urticaria, unspecified
CPT/HCPCS: 99283